=== PATIENT | female | born 1945 | race Caucasian/White ===

== ENCOUNTER 2024-12-18 08:10 | Day surgery (SDC) | payer MEDICARE, SELFPAY ==
[2024-12-17 13:28] VITALS: BMI 20.3
[2024-12-18] VITALS (9 sets, daily range): BP systolic 112–159; BP diastolic 61–92; PULSE 67–83; RESP 15–22; TEMP 36.4; O2SAT 96–99; BMI 22.2
[2024-12-18] MEDS: SODIUM CHLORIDE 0.9% 500 ML 500 ML 20 ML IV (10:55)
[2024-12-18] MEDS: DiphenhydrAMINE INJ 50 MG/ML VIAL 25 MG IV (11:07)
[2024-12-18] MEDS: MIDAZOLAM INJ 1 MG/ML VIAL 2 ML (ASD USE ONLY) 2 MG IV (11:09)
[2024-12-18] MEDS: fentaNYL CIT INJ 50 mCg/ML AMP 2ML (ASD USE ONLY) IV (11:09)
== END 2024-12-18 12:10 | disposition home or self-care (01) ==
PROVIDERS: PCP Internal Medicine; Referring Provider Specialist; Visit Provider Specialist
PROC: 0DBE8ZX Excision of Large Intestine, Via Natural or Artificial Opening Endoscopic, Diagnostic (ICD-10-PCS; CPT 45380; principal; 2024-12-18 12:30)
DX: K63.89 Other specified diseases of intestine (principal); K62.89 Other specified diseases of anus and rectum; K64.9 Unspecified hemorrhoids; K57.30 Diverticulosis of large intestine without perforation or abscess without bleeding
CPT/HCPCS: 45380; A4649; J1200; J2250; J3010; J7040

== ENCOUNTER → 2025-01-04 | Outpatient (CLI) | payer MEDICARE, MEDICAID, SELFPAY ==
[2025-01-04 09:05] LABS: Collection Type, Urine Clean Catch
[2025-01-04 09:28] LABS: Basophils # (Auto) 0.1 Thou/mm3 (0.0-0.2); Basophils % (Auto) 1 % (0-2.5); Eosinophils # (Auto) 0.2 Thou/mm3 (0.0-0.5); Eosinophils % (Auto) 2 % (0-10); Hemoglobin 13.9 g/dL (12.0-16.0); Immature Granulocytes % (Auto) 1 % (0-0); Immature Granulocytes Auto 0.04 Thou/mm3 (0.00-0.00); Lymphocytes # (Auto) 1.3 Thou/mm3 (1.0-4.8); Lymphocytes % (Auto) 18 % (10-50); Mean Corpuscular HGB Conc 33.9 g/dl (31.0-37.0); Mean Corpuscular Volume 95 fL (80-100); Monocytes # (Auto) 0.6 Thou/mm3 (0.0-0.8); Monocytes % (Auto) 8 % (0-12); Neutrophils % (Auto) 70 % (37-80); Nucleated Red Blood Cell % 0 /100 WBC (0); Platelet Count 242 Thou/mm3 (140-440); RDW Standard Deviation 39.8 fL (36.4-46.3); Red Blood Count 4.34 Miln/mm3 (4.00-5.20); White Blood Count 7.1 Thou/mm3 (3.6-11.0)
[2025-01-04 09:42] LABS: Sed Rate (ESR) 12 mm/hr (0-30)
[2025-01-04 09:47] LABS: Alanine Aminotransferase 31 U/L (10-49); Albumin, Serum 4.3 gm/dL (3.4-4.8); Alkaline Phosphatase 78 U/L (46-116); Anion Gap 12 (7-16); Aspartate Amino Transferase 46 U/L (0-34); BUN/Creatinine Ratio 15 Ratio (12-20); Bilirubin,Total 1.6 mg/dL (0.3-1.2); Blood Urea Nitrogen 15 mg/dL (9-23); Calcium 9.5 mg/dL (8.3-10.6); Calcium (Corrected) 9.5 mg/dL (8.5-10.1); Carbon Dioxide 23.4 mMol/L (20.0-31.0); Cardiac Risk Estimate 2.8 RATIO (3.7-5.6); Chloride 102 mMol/L (98-107); Cholesterol 224 mg/dL (132-200); Free T4 (Free Thyroxine) 1.69 ng/dL (0.89-1.76); Globulin 2.1 gm/dL (2.3-3.5); Glucose 109 mg/dL (74-106); HDL Cholesterol 80 mg/dL (40-60); LDL Cholesterol,Calculated 118 mg/dL (0-130); Osmolality,Calculated 275 (275-295); Potassium 4.1 mMol/L (3.4-5.1); Sodium 137 mMol/L (136-145); Thyroid Stimulating Hormone 0.18 uIU/mL (0.55-4.78); Total Protein 6.4 gm/dL (5.7-8.2); Triglycerides 128 mg/dL (30-150); eGFR 57 See Note
[2025-01-04 09:59] LABS: Bilirubin,Urine Negative (Negative); Blood,Urine Negative (Negative); Clarity,Urine Clear (Clear/Hazy); Color,Urine Lt-Yellow (Lt Yel-Yel); Culture Indicated,Urine Not Indicated; Glucose, Urine Negative (Negative); Ketones,Urine Trace (Negative); Leukocyte Esterase,Urine Positive (Negative); Nitrite,Urine Negative (Negative); PH,Urine 6.5 (5.0-7.0); Protein,Urine Negative (Neg - Trace); RBC,Urine 2 /hpf (0-3); Squamous Epithelial Cell,Urine 2 /hpf (0-5); Urobilinogen,Urine Negative mg/dL (0.0-1.0); WBC,Urine 2 /hpf (0-5)
== END | disposition home or self-care (01) ==
LOC: COPL 08:12
PROVIDERS: PCP Internal Medicine; Referring Provider Internal Medicine; Visit Provider Internal Medicine
DX: Z00.00 Encounter for general adult medical examination without abnormal findings (principal)
CPT/HCPCS: 36415; 80053; 80061; 81001; 84439; 84443; 85025; 85652

== ENCOUNTER → 2025-01-07 | Outpatient (CLI) | payer MEDICARE, MEDICAID, SELFPAY ==
[2025-01-07 12:04] LABS: OBS Performed By LAB; OBS QC OK? Yes
[2025-01-07 14:52] LABS: Occult Blood, Stool Negative (Negative); Occult Blood, Stool #2 Negative (Negative); Occult Blood, Stool #3 Negative (Negative)
[2025-01-07 14:53] LABS: OBS Developer Expiration Date 123126; OBS Developer Lot # 1-24 551749
== END | disposition home or self-care (01) ==
LOC: SLDO 11:49
PROVIDERS: PCP Internal Medicine; Referring Provider Internal Medicine; Visit Provider Internal Medicine
DX: Z00.00 Encounter for general adult medical examination without abnormal findings (principal)
CPT/HCPCS: 82270

== ENCOUNTER → 2025-02-01 | Outpatient (CLI) | payer MEDICARE, MEDICAID, SELFPAY ==
--- NOTE | 2025-02-01 13:30 | XR_ITS ---
Examination: Screening digital mammography, bilateral Computer aided detection 3-D breast Tomosynthesis, bilateral Date and time of exam: February 01, 2025 1329 hours Compared to mammograms dating to December 05, 2017 Indication: Screening Technique: Nonmagnified MLO, CC views of the breasts to been obtained, reconstructed from 3-D Tomosynthesis images. R2 computer aided detection program utilized for evaluation of suspicious masses and/or abnormal calcifications. 3-D Tomosynthesis images obtained. Findings: Scattered areas of fibroglandular density. Benign calcifications. No interval suspicious masses Impression: BI-RADS category II: Benign Findings. Recommend 1 year follow-up mammogram.
[2025-02-01 14:38] LABS: Alanine Aminotransferase 21 U/L (10-49); Albumin, Serum 4.5 gm/dL (3.4-4.8); Alkaline Phosphatase 72 U/L (46-116); Aspartate Amino Transferase 36 U/L (0-34); Bilirubin,Direct 0.1 mg/dL (0.0-0.3); Bilirubin,Total 0.5 mg/dL (0.3-1.2); Total Protein 6.9 gm/dL (5.7-8.2)
== END | disposition home or self-care (01) ==
LOC: CDIM 13:28 → COPL 13:40
PROVIDERS: PCP Internal Medicine; Referring Provider Internal Medicine; Visit Provider Radiology Diagnostic Radiology
DX: Z12.31 Encounter for screening mammogram for malignant neoplasm of breast (principal); R92.8 Other abnormal and inconclusive findings on diagnostic imaging of breast; R92.323 Mammographic fibroglandular density, bilateral breasts; I10 Essential (primary) hypertension
CPT/HCPCS: 36415; 77063; 77067; 80076

== ENCOUNTER → 2025-03-23 | Outpatient (CLI) | payer MEDICARE, MEDICAID, SELFPAY ==
[2025-03-23 10:01] LABS: Alanine Aminotransferase 19 U/L (10-49); Albumin, Serum 4.6 gm/dL (3.4-4.8); Alkaline Phosphatase 64 U/L (46-116); Aspartate Amino Transferase 28 U/L (0-34); Bilirubin,Direct 0.2 mg/dL (0.0-0.3); Bilirubin,Total 0.7 mg/dL (0.3-1.2); Total Protein 6.7 gm/dL (5.7-8.2)
== END | disposition home or self-care (01) ==
LOC: COPL 08:15
PROVIDERS: PCP Internal Medicine; Referring Provider Internal Medicine; Visit Provider Internal Medicine
DX: R94.5 Abnormal results of liver function studies (principal)
CPT/HCPCS: 36415; 80076

== ENCOUNTER 2025-05-19 19:25 | Emergency (ER) | payer MEDICARE, MEDICAID, SELFPAY ==
[2025-05-19 20:02] VITALS: BP 143/73; PULSE 92; RESP 16; TEMP 36.6; O2SAT 99
--- NOTE | 2025-05-19 20:05 | XR_ITS ---
Examination: CT cervical spine without contrast 2-D sagittal reconstructions 2-D coronal reconstructions 3-D reconstructions. Exam date and time:May 19, 20252017 hours INDICATION: Ground-level fall today with injury to the neck, neck pain CTDI:vol (mGy) 13.1 DLP: (mGycm) 262 Technique: Multiple 2 mm axial sections of the cervical spine have been obtained. The coronal and sagittal reconstructions have been obtained. 3-D reconstructions have been obtained. Low dose protocols were performed. One or more of the following dose reduction techniques were used; automated exposure control, adjustment of the mA and/or KV according to patient size, use of iterative reconstruction technique. Findings: Axial sections demonstrate intact base of the skull. C1 exhibit satisfactory relationship to the odontoid. No acute cervical vertebral body fracture seen. Alignment posterior spinous processes satisfactory. Cervical fusion C6-C7 Impression: No acute cervical fracture.
--- NOTE | 2025-05-19 20:05 | EKG_ITS ---
[facility] Test Date: 2025-05-19 Pat Name: TOÑO BHATT Department: Room: - Gender: Female Sales Planning Coordinator: : 1945 Requested By: Dusty Duenas Order Number: [id number] Reading MD: Dusty Duenas Measurements Intervals [place] Rate: 101 P: 77 DC: 149 QRS: -8 QRSD: 74 T: 50 QT: 338 QTc: 438 Interpretive Statements SINUS TACHYCARDIA ABNORMAL RHYTHM ECG No previous ECG available for comparison /store/S0/[id number]
--- NOTE | 2025-05-19 20:05 | XR_ITS ---
Examination: CT brain head without contrast. 2-D sagittal coronal reconstructions Date and time of exam:May 19, 20252013 hours INDICATIONS: Patient fell today with injury to the head, head pain CTDI: vol (mGy):48.2 DLP: (mGycm):1010 Technique: Multiple CT axial sections of the brain have been obtained, 5 mm slice thickness. Contrast has not been administered. 2-D sagittal, coronal reconstructions have been obtained Low dose protocols were performed. One or more of the following dose reduction techniques were used; automated exposure control, adjustment of the mA and/or KV according to patient size, use of iterative reconstruction technique. Findings: No significant ventricular enlargement. Intra-axial or extra-axial hemorrhage density is not seen. No mass effect or midline shift Basal cisterns are not remarkable. Fourth ventricle is midline. Cranial vault intact. Impression: Negative for acute hemorrhage, mass effect or midline shift
--- NOTE | 2025-05-19 20:06 | XR_ITS ---
Examination: PA chest single view TECHNIQUE: Upright PA chest single view Date and time: May 19, 2025, 2035 hours, comparison September 10, 2023. INDICATIONS: Patient fell today with image of the chest, chest pain. FINDINGS: Normal heart size No pneumothorax. No pulmonary contusion or hemothorax. Clavicles ribs appear intact IMPRESSION: No pneumothorax pulmonary contusion or hemothorax
--- NOTE | 2025-05-19 20:06 | EDNOTE_ITS ---
ED Head Injury RME/HPI General Chief complaint: Head Injury Stated complaint: LAC to head Time Seen by Provider: 05/19/25 20:04 Arrival date/time: 05/19/25 19:25 79F with history of hypothyroidism and anxiety presents to ED with head lac after fall yesterday. Patient does not remember what happened exactly. Patient is also on HRT. Patient took some extra sleeping pills last and was also drinking. Patient has not had a tetanus shot in the past 5 years, but she doesn't believe in vaccinations. Patient denies SOB and N/V. Unknown LOC. Limitations: no limitations Related Data Home Medications ?Medication ?Instructions ?Recorded ?Confirmed estradiol 0.5 mg tablet 0.5 mg PO QDAY 05/11/1811/29 methocarbamol 750 mg tablet 750 mg PO QDAY 04/04/22 levothyroxine 175 mcg tablet 175 mcg PO QDAY 12/17/24 12/18/24 Allergies Allergy/AdvReac Type Severity Reaction Status Date / Time ciprofloxacin (From Cipro) Allergy Severe OTHER Verified 12/18/24 08:53 semaglutide (From Ozempic) Allergy Severe OTHER Verified 12/18/24 08:53 amoxicillin Allergy Unknown FEELS LIKE Verified 12/18/24 08:53 A HEART ATTACK sulfamethoxazole (From Allergy Verified 12/18/24 08:53 Bactrim) trimethoprim (From Bactrim) Allergy Verified 12/18/24 08:53 Review of Systems Review of Systems Systems Reviewed: All systems reviewed, normal except as documented Constitutional Constitutional: Reports system reviewed and no additional complaints, except as documented, Reports as per HPI, Denies fever(s) and Reports headache(s) (pain) ENT Ears, Nose, Mouth, and Throat: Denies disequilibrium and Reports headache(s) (pain) Cardiovascular Cardiovascular: Reports system reviewed and no additional complaints, except as documented, Denies chest pain and Denies dyspnea Respiratory Respiratory: Reports system reviewed and no additional complaints, except as documented, Denies cough and Denies dyspnea Gastrointestinal Gastrointestinal: Reports system reviewed and no additional complaints, except as documented, Denies abdominal pain, Denies nausea and Denies vomiting Integumentary/Breasts Skin/Breast: Reports as per HPI and Reports skin pain Neurologic Neurologic: Reports system reviewed and no additional complaints, except as documented, Denies confusion, Denies disequilibrium and Reports headache(s) (pain) Psychiatric Psychiatric: Denies confusion Past Medical History Past Medical History NEUROLOGIC: Negative Neurological Disorders or Seizures CARDIAC: Negative Cardiac Disorders or Congestive Heart Failure RESPIRATORY: Negative Chronic Obstructive Pulmonary Disease (COPD) GASTROINTESTINAL: Negative Gastrointestinal Disorders GENITOURINARY: Negative Genitourinary Disorders or Renal Disease MUSCULOSKELETAL: Positive Musculoskeletal Disorders (Left hip brusitis) ENDOCRINE: Positive Hypothyroidism; Negative Diabetes Mellitus Type 1 or Diabetes Mellitus Type 2 OTHER HISTORY: Negative Blood Transfusions or Anesthesia Reactions Surgical History SURGICAL: Positive Hysterectomy Social History SMOKING STATUS: Never smoker ED Exam General Limitations: Present no limitations General appearance: Present alert and in no apparent distress Expanded Head Exam Head exam physical: Present laceration (X cm on top of head) Eye Eye exam: Present normal appearance, PERRL and EOMI ENT ENT exam: Present normal exam, normal oropharynx and mucous membranes moist Neck Neck exam: Present normal inspection, full ROM and trachea midline Chest Chest inspection: Present normal inspection and symmetric chest wall rise Respiratory Respiratory exam: Present normal lung sounds bilaterally Cardiovascular Cardiovascular exam: Present regular rate, normal rhythm and normal heart sounds Abdominal Exam Abdominal exam: Present soft and normal bowel sounds Extremities Exam Extremities exam: Present normal inspection and full ROM Back Exam Back exam: Present normal inspection and full ROM Neurological Exam Neurological exam: Present alert, oriented X3 and CN II-XII intact Psychiatric Psychiatric exam: Present normal affect and normal mood Skin Skin exam: Present warm, dry, intact and normal color Course Quality Measures none Orders Category Date Time Status EKG (ED ONLY) *Do not use* NOW Care 05/19/25 20:05 Completed Stapler to Beside ONCE Care 05/19/25 20:05 Completed Wound Care NOW Care 05/19/25 20:[address] cervical spine wo con Stat Exams 05/19/25 20:[address] head/brain wo con Stat Exams 05/19/25 20:05 Completed EKG (ED Only) Stat Exams 05/19/25 20:05 Draft XR chest 1V portable Stat Exams 05/19/25 20:06 Completed Alcohol, Blood Medical Stat Lab 05/19/25 20:31 Completed CBC Stat Lab 05/19/25 20:31 Completed Comprehensive Metabolic Panel Stat Lab 05/19/25 20:31 Completed D-Dimer Stat Lab 05/19/25 20:31 Completed Drug Screen,Urine Stat Lab 05/19/25 20:38 Completed Magnesium Stat Lab 05/19/25 20:31 Completed Troponin I Stat Lab 05/19/25 20:31 Completed Troponin I Stat Lab 05/19/25 22:39 Completed Urinalysis, C/S if Indicated Stat Lab 05/19/25 20:38 Completed Vital Signs Vital signs: Vital Signs Temperature 98 F 05/19/25 20:02 Pulse Rate 92 05/19/25 20:02 Respiratory Rate 16 05/19/25 20:02 Blood Pressure 143/73 H 05/19/25 20:02 Pulse Oximetry (%) 99 05/19/25 20:02 O2 at 99% on RA and WNLs Head Injury MDM Narrative MDM Narrative:: 79F with history of hypothyroidism and anxiety presents to ED with head lac after fall yesterday. Patient does not remember what happened exactly. Patient is also on HRT. Patient took some extra sleeping pills last and was also drinking. Patient has not had a tetanus shot in the past 5 years, but she doesn't believe in vaccinations. Patient denies SOB and N/V. Unknown LOC. Physical exam reveals X cm lac on top of head. No other gross head trauma. Speech normal. Gait normal. WOB normal. Neck ROM intact. Patient is afebrile, calm, and alert. Wound cleaned/irrigated and closed with 13 jonelle. Given deputy general counsel to have them removed in about [address] unremarkable. No leukocytosis or anemia. CMP unremarkable. UA clean. EKG sinus tach of 101. Trop minimally elevated, but still WNLs. Repeat trop somewhat lower. Patient states she has a heart murmur, which may be responsible for a higher baseline trop. D-dimer normal. Patient data External records reviewed:: [facility] previous records Clinical information provided by:: patient Social determinants that could affect healthcare access:: mental health Patient has the following chronic illnesses:: hypothyroidism and anxiety How is presenting disease/condition affected by chronic disease/condition?: exacerbated by Evaluation data The following diagnostics were reviewed and interpreted by me:: lab results, radiology exam(s) and EKG tracing(s) Lab and/or radiology exams considered but not ordered:: ordered Interpretation Summary: above Medications / Prescriptions Medications or Prescriptions considered but not ordered:: not ordered Medication administrations:: n/a Consultations Consultation(s) initiated? (list below): No Diagnosis Differential diagnosis head injury: concussion without loss of consciousness, epidural hematoma, closed head injury, subarachnoid hematoma, postconcussion syndrome, subdural hematoma, concussion with loss of consciousness and other (laceration and elevated trop) Most likely diagnosis given after review of the tests above:: laceration and elevated trop Admission Indicated Admission indicated?: not indicated Admission Request Was there a request for admission?: No Disposition Plan Disposition Plan: Discharge Discharge Attestation Discharge Attestation: The patient and all family members were given an opportunity to ask questions and understood the discharge instructions. Discharge instructions specifically effects, indications for sooner follow up or return to the emergency department, and the expected course of current diagnosis. Patient condition: Stable Discharge Plan Plan Patient Disposition: HOME (Self Care) Discharge Disposition comment: Stable Prescriptions/Referrals Prescriptions/Med Rec: No Action methocarbamol 750 mg tablet 750 mg PO QDAY estradiol 0.5 mg Tablet 0.5 mg PO QDAY levothyroxine 175 mcg tablet 175 mcg PO QDAY Patient Comments: TAKE 1 TABLET BY MOUTH EVERY DAY IN THE MORNING Referrals: Franci Damon MD [Primary Care Provider] - In 1 week Problem List Clinical Impression: Laceration, Troponin I above reference range Patient/Caregiver Discharge Instructions Education Materials: Troponin, ED Laceration Scalp Sutures or ... Additional Instructions: Please follow-up with PCP within 24-48 hours and return immediately if symptoms worsen. Have jonelle removed in about 10 days. Can see PCP about troponin levels. Your murmur may be responsible for this. Recommend additional follow-up w/ possible referral to cardiology. Print Language: Spanish Stand Alone Forms: Patient Portal Info Letter SURI/GERARDO Supervising Physician SURI/GERARDO Supervising Physician: Dr. Boyd
[2025-05-19 20:39] LABS: Basophils # (Auto) 0.1 Thou/mm3 (0.0-0.2); Basophils % (Auto) 1 % (0-2.5); Eosinophils # (Auto) 0.1 Thou/mm3 (0.0-0.5); Eosinophils % (Auto) 1 % (0-10); Hematocrit 40.7 % (36.0-46.0); Hemoglobin 14.6 g/dL (12.0-16.0); Immature Granulocytes Auto 0.04 Thou/mm3 (0.00-0.00); Lymphocytes # (Auto) 1.8 Thou/mm3 (1.0-4.8); Lymphocytes % (Auto) 19 % (10-50); Mean Corpuscular HGB Conc 35.9 g/dl (31.0-37.0); Mean Corpuscular Hemoglobin 34.5 pg (25.0-35.0); Mean Corpuscular Volume 96 fL (80-100); Monocytes # (Auto) 0.8 Thou/mm3 (0.0-0.8); Monocytes % (Auto) 8 % (0-12); Neutrophils # (Auto) 6.8 Thou/mm3 (1.8-7.7); Neutrophils % (Auto) 71 % (37-80); Nucleated Red Blood Cell # 0.00 Thou/mm3 (0.00-0.00); Nucleated Red Blood Cell % 0 /100 WBC (0); Platelet Count 249 Thou/mm3 (140-440); RDW Standard Deviation 40.6 fL (36.4-46.3); Red Blood Count 4.23 Miln/mm3 (4.00-5.20); White Blood Count 9.5 Thou/mm3 (3.6-11.0)
[2025-05-19 20:56] LABS: D-Dimer < 250 ng/mL (<600)
[2025-05-19 21:02] LABS: Alanine Aminotransferase 19 U/L (10-49); Albumin, Serum 4.8 gm/dL (3.4-4.8); Albumin/Globulin Ratio 2.4 (1.2-2.2); Alkaline Phosphatase 83 U/L (46-116); Anion Gap 8 (7-16); Aspartate Amino Transferase 33 U/L (0-34); BUN/Creatinine Ratio 7 Ratio (12-20); Bilirubin,Total 0.9 mg/dL (0.3-1.2); Blood Urea Nitrogen 6 mg/dL (9-23); Calcium 10.0 mg/dL (8.3-10.6); Calcium (Corrected) 10.0 mg/dL (8.5-10.1); Carbon Dioxide 26.6 mMol/L (20.0-31.0); Chloride 102 mMol/L (98-107); Creatinine (Component) 0.9 mg/dL (0.6-1.3); Globulin 2.0 gm/dL (2.3-3.5); Glucose 111 mg/dL (74-106); Magnesium 2.0 mg/dL (1.6-2.6); Osmolality,Calculated 272 (275-295); Potassium 4.2 mMol/L (3.4-5.1); Sodium 137 mMol/L (136-145); Total Protein 6.8 gm/dL (5.7-8.2); Troponin I 0.037 ng/mL (0.0-0.045); eGFR > 60 See Note
[2025-05-19 21:16] LABS: Alcohol, Blood Medical < 3.0 mg/dL (0-10.0)
[2025-05-19 21:33] LABS: Collection Type, Urine Clean Catch
[2025-05-19 21:41] LABS: Bilirubin,Urine Negative (Negative); Blood,Urine Negative (Negative); Clarity,Urine Clear (Clear/Hazy); Color,Urine Colorless (Lt Yel-Yel); Culture Indicated,Urine Not Indicated; Glucose, Urine Negative (Negative); Ketones,Urine Negative (Negative); Leukocyte Esterase,Urine Negative (Negative); Nitrite,Urine Negative (Negative); PH,Urine 7.5 (5.0-7.0); Protein,Urine Negative (Neg - Trace); RBC,Urine 2 /hpf (0-3); Specific Gravity,Urine 1.005 (1.001-1.035); Squamous Epithelial Cell,Urine 2 /hpf (0-5); Urobilinogen,Urine Negative mg/dL (0.0-1.0); WBC,Urine 1 /hpf (0-5)
[2025-05-19 21:47] LABS: Amphetamine/Methamp Scrn,U Negative (Negative); Barbiturate Screen,Urine Negative (Negative); Benzodiazepines Screen,Urine Negative (Negative); Benzoylecgonine Screen, Ur Negative (Negative); Fentanyl Screen,Urine Negative (Negative); Opiate Screen,Urine Negative (Negative); THC Screen,Urine Negative (Negative)
[2025-05-19 23:03] LABS: Troponin I 0.035 ng/mL (0.0-0.045)
[2025-05-19 23:21] VITALS: BP 132/84; PULSE 78
== END 2025-05-19 23:21 | disposition home or self-care (01) ==
PROVIDERS: Physician Assistant; Emergency Provider Emergency Medicine; PCP Internal Medicine
DX: S01.91XA Laceration without foreign body of unspecified part of head, initial encounter (principal); S19.9XXA Unspecified injury of neck, initial encounter; W19.XXXA Unspecified fall, initial encounter; E03.9 Hypothyroidism, unspecified; F41.9 Anxiety disorder, unspecified; R00.0 Tachycardia, unspecified; Z79.890 Hormone replacement therapy; R79.89 Other specified abnormal findings of blood chemistry
CPT/HCPCS: 12001; 36415; 70450; 71045; 72125; 80053; 80307; 80320; 81001; 83735; 84484; 85025; 85379; 93005; 99283; G0480

== ENCOUNTER 2025-07-13 15:17 | Emergency (ER) | payer MEDICARE, MEDICAID, SELFPAY ==
[2025-07-13 15:19] VITALS: BP 128/67; PULSE 69; RESP 18; TEMP 36.4; O2SAT 99
[2025-07-13 15:20] VITALS: BMI 19.1
[2025-07-13 15:31] VITALS: PULSE 73; O2SAT 99
--- NOTE | 2025-07-13 15:35 | XR_ITS ---
Examination: CT brain head without contrast. 2-D sagittal coronal reconstructions Date and time of exam: July 13, 2025, 1604 hours INDICATIONS: Ground-level fall today with injury to the head, head pain COMPARISON: May 19, 2025 CTDI: vol (mGy): 50 DLP: (mGycm): 1008 Technique: Multiple CT axial sections of the brain have been obtained, 5 mm slice thickness. Contrast has not been administered. 2-D sagittal, coronal reconstructions have been obtained Low dose protocols were performed. One or more of the following dose reduction techniques were used; automated exposure control, adjustment of the mA and/or KV according to patient size, use of iterative reconstruction technique. 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 No acute hemorrhage No mass effect Fourth ventricle is midline Cranial vault intact IMPRESSION: Interval small chronic subdural hygroma peripheral to the left cerebral hemisphere as above No mass effect No acute hemorrhage Recommend short-term follow-up CT brain scan 1 to 2 days to document stability of this chronic appearing subdural hygroma
--- NOTE | 2025-07-13 15:35 | EKG_ITS ---
[facility] Test Date: 2025-07-13 Pat Name: TOÑO BHATT Department: Room: - Gender: Female Logistics/Shipper: : 1945 Requested By: Nate Barajas Order Number: [id number] Reading MD: Nate Barajas Measurements Intervals [place] Rate: 64 P: 40 AL: 159 QRS: -7 QRSD: 83 T: 22 QT: 420 QTc: 436 Interpretive Statements SINUS RHYTHM Compared to ECG 05/19/2025 20:24:05 Sinus tachycardia no longer present /store/S0/[id number]/ecg/[id number]
--- NOTE | 2025-07-13 15:36 | XR_ITS ---
Examination: CT cervical spine without contrast 2-D sagittal reconstructions 2-D coronal reconstructions 3-D reconstructions. Exam date and time: July 13, 2025, 1604 hours INDICATIONS: Ground-level fall today with injury to the neck, neck pain COMPARISON: May 19, 2025 CTDI:vol (mGy) 13.2 DLP: (mGycm) 286 Technique: Multiple 2 mm axial sections of the cervical spine have been obtained. The coronal and sagittal reconstructions have been obtained. 3-D reconstructions have been obtained. Low dose protocols were performed. One or more of the following dose reduction techniques were used; automated exposure control, adjustment of the mA and/or KV according to patient size, use of iterative reconstruction technique. Findings: Axial sections demonstrate intact base of the skull. C1 exhibit satisfactory relationship to the odontoid. No acute cervical vertebral body fracture seen. Alignment posterior spinous processes satisfactory. Impression: No acute cervical fracture.
--- NOTE | 2025-07-13 15:36 | PD.EDADULT ---
ED General RME/HPI General Chief complaint: Dizziness Stated complaint: DIZZINESS Time Seen by Provider: 07/13/25 15:29 Arrival date/time: 07/13/25 15:17 CC: Dizziness HPI patient presents to the ER via EMS who report dizziness also. The patient has stable vital signs. Patient is impatient, stating that she drank wine last night and took a melatonin pill and woke up dizzy this morning. Patient also admits that she fell 3 days ago. And that she has been having problems with recurrent falls. Patient denies chest pain shortness of breath difficulty breathing Related Data Home Medications ?Medication ?Instructions ?Recorded ?Confirmed estradiol 0.5 mg tablet 0.5 mg PO QDAY 05/11/18 12/18/24 methocarbamol 750 mg tablet 750 mg PO QDAY 04/04/22 12/17/24 levothyroxine 175 mcg tablet 175 mcg PO QDAY 12/17/24 12/18/24 Allergies Allergy/AdvReac Type Severity Reaction Status Date / Time ciprofloxacin (From Cipro) Allergy Severe OTHER Verified 12/18/24 08:53 semaglutide (From Ozempic) Allergy Severe OTHER Verified 12/18/24 08:53 amoxicillin Allergy Unknown FEELS LIKE Verified 12/18/24 08:53 A HEART ATTACK sulfamethoxazole (From Allergy Verified 12/18/24 08:53 Bactrim) trimethoprim (From Bactrim) Allergy Verified 12/18/24 08:53 Review of Systems Review of Systems Narrative Review of Systems: GEN: No fever, no chills, no weight loss EYES: No discharge, no visual changes, no pain HEENT: No ear pain, no congestion, no sore throat PULM: No shortness of breath, no cough, no congestion CV: No chest pain, no dyspnea on exertion, no palpitations GI: No nausea, no vomiting, no diarrhea, no pain, no constipation : No frequency, no urgency, no dysuria MUSC/SKEL: No joint pain, no back pain SKIN: No rash PSYCH: No hallucinations, no depression HEME/LYMPH: No easy bleeding or bruising tendencies NEURO: No weakness, no headache, +dizziness ED Exam Narrative Physical exam: [General: Anxious but not in any acute distress Head normocephalic HEENT: Eyes pupils are PERRLA EOMs are intact. Within acceptable limits Neck is supple nontender Chest equal chest rise nontender to palpation Respiratory: Clear to auscultation no wheezes crackles or rubs CV: Rate rhythm is regular no murmurs rubs or clicks Abdomen is soft nontender no masses positive bowel sounds all 4 quadrants Back: No CVA tenderness no spinous process tenderness from cervical spine thoracic and lumbar spine Skin: Intact no petechiae rash induration ulceration or crepitus Extremities: Moving all extremity against resistance cap refill less than 2 seconds neurosensory intact Neuro: Awake alert oriented x3 Glascow coma 15 no focal deficits] Course Course Course Narrative: Patient admits to having recurrent falls, CT of the head shows that the patient has a 8.24 mm subdural dural hygroma peripheral to the left cerebral hemisphere, will need to consult neurosurgery regarding hygroma. Patient's case clinical presentation and CT imaging discussed with Dr. Braga neurosurgeon who felt the dizziness has no relation to the hygroma the patient will be discharged home to follow-up with primary care doctor. She is strongly encouraged to decrease drinking of alcohol in the taking of melatonin in the evenings. Quality Measures none Orders Category Date Time Status EKG (ED ONLY) *Do not use* NOW Care 07/13/25 15:35 Completed Referral - Employment Interviewer Stat Cons 07/13/25 17:[address] cervical spine wo con Stat Exams 07/13/25 15:[address] head/brain wo con Stat Exams 07/13/25 15:35 Completed EKG (ED Only) Stat Exams 07/13/25 15:35 Draft Alcohol, Blood Medical Stat Lab 07/13/25 17:08 Completed B-Type Natriuretic Peptide Stat Lab 07/13/25 17:08 Completed CBC Stat Lab 07/13/25 17:08 Completed Comprehensive Metabolic Panel Stat Lab 07/13/25 17:08 Completed Drug Screen,Urine Stat Lab 07/13/25 16:50 Completed Free T4 (Free Thyroxine) Stat Lab 07/13/25 17:08 Completed LDH (Lactate Dehydrogenase) Stat Lab 07/13/25 17:08 Completed Magnesium Stat Lab 07/13/25 17:08 Completed Partial Thromboplastin Time Stat Lab 07/13/25 17:08 Completed Prothrombin Time with INR Stat Lab 07/13/25 17:08 Completed Thyroid Stimulating Hormone Stat Lab 07/13/25 17:08 Completed Troponin I Stat Lab 07/13/25 17:08 Completed Urinalysis, C/S if Indicated Stat Lab 07/13/25 16:50 Completed Vital Signs Vital signs: Vital Signs Temperature 97.6 F 07/13/25 15:19 Pulse Rate 69 07/13/25 15:19 Respiratory Rate 18 07/13/25 15:19 Blood Pressure 128/67 07/13/25 15:19 Pulse Oximetry (%) 99 07/13/25 15:19 Oxygen Delivery Method Room Air 07/13/25 15:19 Discharge Plan Plan Patient Disposition: HOME (Self Care) Patient condition on transfer: Benefits outweigh risks Prescriptions/Referrals Prescriptions/Med Rec: No Action methocarbamol 750 mg tablet 750 mg PO QDAY estradiol 0.5 mg Tablet 0.5 mg PO QDAY levothyroxine 175 mcg tablet 175 mcg PO QDAY Patient Comments: TAKE 1 TABLET BY MOUTH EVERY DAY IN THE MORNING Referrals: Glen Borrero MD [Primary Care Provider, Family Practice] - In 1 week Problem List Clinical Impression: Dizziness, Fall, Alcohol intoxication Patient/Caregiver Discharge Instructions Education Materials: ED Dizziness, Uncertain Cause, ED Alcohol Intoxication Additional Instructions: Cut back on your alcohol consumption, talk to your primary care doctor about a home health assessment for fall risk. Print Language: Serbian Stand Alone Forms: [employer] Award Info., Work/School Release, Patient Portal Info Letter PA/GERARDO Supervising Physician PA/GERARDO Supervising Physician: Nate Yang ENP [facility] Clinical Information Provided by: patient and EMS [facility] Meds/Rx considered, not ordered None Labs/Rad/Tests considered, not ordered None Chronic Illness/Social Conditions Explain: Hypothyroidism EKG Interpretation EKG #1: EKG Interpretation: EKG performed at 1543 shows a ventricular rate of 64 LA interval 159 QRS of 83 QTc of 430 this is sinus rhythm. Labs Labs: interpreted by fl Lab(s) Interpretation(s): CBC shows no acute leukocytosis anemia thrombocytopenia Coags within acceptable limits CMP shows a chloride of 108 no other electrolyte imbalances renal impairment transaminitis or T. bili elevation Free T4 at 2.1 6 TSH at 1.63 Urine is negative for UTI. U tox is negative Alcohol level is 198
[2025-07-13 17:10] LABS: Collection Type, Urine Clean Catch
[2025-07-13 17:15] LABS: Bilirubin,Urine Negative (Negative); Blood,Urine Negative (Negative); Clarity,Urine Clear (Clear/Hazy); Color,Urine Lt-Yellow (Lt Yel-Yel); Culture Indicated,Urine Not Indicated; Glucose, Urine Negative (Negative); Ketones,Urine Negative (Negative); Leukocyte Esterase,Urine Negative (Negative); Nitrite,Urine Negative (Negative); PH,Urine 6.5 (5.0-7.0); Protein,Urine Negative (Neg - Trace); RBC,Urine 1 /hpf (0-3); Specific Gravity,Urine 1.011 (1.001-1.035); Squamous Epithelial Cell,Urine 2 /hpf (0-5); Urobilinogen,Urine Negative mg/dL (0.0-1.0); WBC,Urine 1 /hpf (0-5)
[2025-07-13 17:20] LABS: Amphetamine/Methamp Scrn,U Negative (Negative); Barbiturate Screen,Urine Negative (Negative); Benzodiazepines Screen,Urine Negative (Negative); Benzoylecgonine Screen, Ur Negative (Negative); Fentanyl Screen,Urine Negative (Negative); Opiate Screen,Urine Negative (Negative); THC Screen,Urine Negative (Negative)
[2025-07-13 17:34] VITALS: BP 120/65; PULSE 83; RESP 15; TEMP 36.7; O2SAT 98
[2025-07-13 17:38] LABS: Basophils # (Auto) 0.1 Thou/mm3 (0.0-0.2); Basophils % (Auto) 1 % (0-2.5); Eosinophils # (Auto) 0.2 Thou/mm3 (0.0-0.5); Eosinophils % (Auto) 2 % (0-10); Hematocrit 42.2 % (36.0-46.0); Hemoglobin 14.5 g/dL (12.0-16.0); Immature Granulocytes Auto 0.03 Thou/mm3 (0.00-0.00); Lymphocytes # (Auto) 1.8 Thou/mm3 (1.0-4.8); Lymphocytes % (Auto) 27 % (10-50); Mean Corpuscular HGB Conc 34.4 g/dl (31.0-37.0); Mean Corpuscular Hemoglobin 33.6 pg (25.0-35.0); Mean Corpuscular Volume 98 fL (80-100); Monocytes # (Auto) 0.4 Thou/mm3 (0.0-0.8); Monocytes % (Auto) 7 % (0-12); Neutrophils # (Auto) 4.2 Thou/mm3 (1.8-7.7); Neutrophils % (Auto) 63 % (37-80); Nucleated Red Blood Cell # 0.00 Thou/mm3 (0.00-0.00); Nucleated Red Blood Cell % 0 /100 WBC (0); Platelet Count 256 Thou/mm3 (140-440); RDW Standard Deviation 40.4 fL (36.4-46.3); Red Blood Count 4.32 Miln/mm3 (4.00-5.20); White Blood Count 6.7 Thou/mm3 (3.6-11.0)
[2025-07-13 17:54] LABS: B-Type Natriuretic Peptide 43 pg/mL (0-100)
[2025-07-13 17:58] LABS: Alanine Aminotransferase 32 U/L (10-49); Albumin, Serum 4.4 gm/dL (3.4-4.8); Albumin/Globulin Ratio 2.2 (1.2-2.2); Alcohol, Blood Medical 198.8 mg/dL (0-10.0); Alkaline Phosphatase 63 U/L (46-116); Anion Gap 12 (7-16); Aspartate Amino Transferase 60 U/L (0-34); BUN/Creatinine Ratio 7 Ratio (12-20); Bilirubin,Total 0.4 mg/dL (0.3-1.2); Blood Urea Nitrogen < 5 mg/dL (9-23); Calcium 9.3 mg/dL (8.3-10.6); Calcium (Corrected) 9.3 mg/dL (8.5-10.1); Carbon Dioxide 25.5 mMol/L (20.0-31.0); Chloride 108 mMol/L (98-107); Creatinine (Component) 0.7 mg/dL (0.6-1.3); Estimated Creatinine Clearance 54.1 mL/min (>60); Free T4 (Free Thyroxine) 2.16 ng/dL (0.89-1.76); Globulin 2.0 gm/dL (2.3-3.5); Glucose 103 mg/dL (74-106); LDH (Lactate Dehydrogenase) 222 U/L (120-246); Magnesium 2.0 mg/dL (1.6-2.6); Osmolality,Calculated 285 (275-295); Potassium 4.1 mMol/L (3.4-5.1); Sodium 145 mMol/L (136-145); Thyroid Stimulating Hormone 1.63 uIU/mL (0.55-4.78); Total Protein 6.4 gm/dL (5.7-8.2); Troponin I 0.034 ng/mL (0.0-0.045); eGFR > 60 See Note
[2025-07-13 18:06] LABS: INR 1.0 (0.9-1.3); Partial Thromboplastin Time 29.0 Seconds (22.0-36.0); Prothrombin Time 10.9 Seconds (9.0-12.2)
--- NOTE | 2025-07-13 18:25 | PC.NURSE ---
INFORMATION FAXED TO [facility]. CALLED AND LEFT MESSAGE WITH [facility] MESSAGE LINE.
--- NOTE | 2025-07-13 19:03 | PC.CM ---
1730 I received referral to transfer patient for neurosurgery for hygroma. I let Carmen transfer nurse know that I was currently busy with several transfers and one being a stat transfer from [place]. Carmen states she will take over transfer.
[2025-07-13 19:11] VITALS: BP 166/49; PULSE 89; RESP 15; TEMP 36.8; O2SAT 98
== END 2025-07-13 19:11 | disposition home or self-care (01) ==
PROVIDERS: Registered Nurse General Practice; Emergency Provider Emergency Medicine; PCP Family Medicine
DX: F10.129 Alcohol abuse with intoxication, unspecified (principal); E03.9 Hypothyroidism, unspecified; R29.6 Repeated falls; Y90.6 Blood alcohol level of 120-199 mg/100 ml
CPT/HCPCS: 36415; 70450; 72125; 80053; 80307; 80320; 81001; 83615; 83735; 83880; 84439; 84443; 84484; 85025; 85610; 85730; 93005; 99284; G0480

== ENCOUNTER 2025-07-22 12:20 | Emergency (ER) | payer MEDICARE, MEDICAID, SELFPAY ==
[2025-07-22 12:21] VITALS: BMI 19.1
[2025-07-22 12:40] VITALS: BP 113/72; PULSE 83; RESP 18; TEMP 36.9; O2SAT 97
--- NOTE | 2025-07-22 12:51 | XR_ITS ---
Examination: CT brain head without contrast. 2-D sagittal coronal reconstructions Date and time of exam: July 22, 2025, 1333 hours INDICATIONS: Head trauma 2 weeks ago with persistent head pain COMPARISON: 01/11/2025 CTDI: vol (mGy): 48.8 DLP: (mGycm): 1040 Technique: Multiple CT axial sections of the brain have been obtained, 5 mm slice thickness. Contrast has not been administered. 2-D sagittal, coronal reconstructions have been obtained Low dose protocols were performed. One or more of the following dose reduction techniques were used; automated exposure control, adjustment of the mA and/or KV according to patient size, use of iterative reconstruction technique. Findings: No significant ventricular enlargement. Intra-axial or extra-axial hemorrhage density is not seen. No mass effect or midline shift Basal cisterns are not remarkable. Fourth ventricle is midline. Cranial vault intact. Impression: Negative for acute hemorrhage, mass effect or midline shift Advise clinical correlation and follow-up accordingly
--- NOTE | 2025-07-22 14:33 | PD.EDHA ---
ED Headache RME/HPI General Chief Complaint: Headache Stated Complaint: yellow discharge from eyes last night Time Seen by Provider: 07/22/25 12:51 Arrival date/time: 07/22/25 12:20 80-year-old female presents for complaints for bilateral eye discharge and crusting patient also reports that she had an injury 11 days ago patient had a CT scan at the time was told to have repeat CT scan 2 days patient reports she was unable to see her doctor so she came here instead. Currently patient reports no headache dizziness or weakness Limitations: no limitations Related Data Home Medications ?Medication ?Instructions ?Recorded ?Confirmed estradiol 0.5 mg tablet 0.5 mg PO QDAY 05/11/18 12/18/24 methocarbamol 750 mg tablet 750 mg PO QDAY 04/04/22 12/17/24 levothyroxine 175 mcg tablet 175 mcg PO QDAY 12/17/24 12/18/24 Previous Rx's ?Medication ?Instructions ?Recorded tobramycin 0.3 % eye drops 2 drp ophthalmic (eye) Q4H 5 days 07/22/25 #5 mL Allergies Allergy/AdvReac Type Severity Reaction Status Date / Time ciprofloxacin (From Cipro) Allergy Severe OTHER Verified 12/18/24 08:53 semaglutide (From Ozempic) Allergy Severe OTHER Verified 12/18/24 08:53 amoxicillin Allergy Unknown FEELS LIKE Verified 12/18/24 08:53 A HEART ATTACK sulfamethoxazole (From Allergy Verified 12/18/24 08:53 Bactrim) trimethoprim (From Bactrim) Allergy Verified 12/18/24 08:53 Review of Systems Review of Systems Systems Reviewed: All systems reviewed, normal except as documented Constitutional Constitutional: Reports system reviewed and no additional complaints, except as documented, Denies fever(s) and Reports headache(s) Eyes Eyes: Reports system reviewed and no additional complaints, except as documented and Denies blurry vision ENT Ears, Nose, Mouth, and Throat: Reports system reviewed and no additional complaints, except as documented, Reports headache(s), Denies nasal congestion and Denies nasal discharge Cardiovascular Cardiovascular: Reports system reviewed and no additional complaints, except as documented, Denies chest pain and Denies dyspnea Respiratory Respiratory: Reports system reviewed and no additional complaints, except as documented, Denies chest congestion, Denies cough and Denies dyspnea Gastrointestinal Gastrointestinal: Reports system reviewed and no additional complaints, except as documented and Denies abdominal pain Integumentary/Breasts Skin/Breast: Reports system reviewed and no additional complaints, except as documented and Denies rash Neurologic Neurologic: Reports system reviewed and no additional complaints, except as documented, Reports as per HPI and Reports headache(s) Past Medical History Past Medical History NEUROLOGIC: Negative Neurological Disorders or Seizures CARDIAC: Negative Cardiac Disorders or Congestive Heart Failure RESPIRATORY: Negative Chronic Obstructive Pulmonary Disease (COPD) GASTROINTESTINAL: Negative Gastrointestinal Disorders GENITOURINARY: Negative Genitourinary Disorders or Renal Disease MUSCULOSKELETAL: Positive Musculoskeletal Disorders and Arthritis ENDOCRINE: Positive Endocrine Disorders (Junior's disease) and Hypothyroidism; Negative Diabetes Mellitus Type 1 or Diabetes Mellitus Type 2 PSYCHO/SOCIAL: Positive Anxiety OTHER HISTORY: Negative Blood Transfusions or Anesthesia Reactions Surgical History SURGICAL: Positive Hysterectomy Social History SMOKING STATUS: Current some day smoker ED Exam General Limitations: Present no limitations General appearance: Present alert and in no apparent distress Head Head exam: Present atraumatic Eye Eye exam: Present PERRL, EOMI and conjunctival injection ENT ENT exam: Present normal exam, normal oropharynx and mucous membranes moist Neck Neck exam: Present normal inspection, full ROM and trachea midline Chest Chest inspection: Present normal inspection and symmetric chest wall rise Respiratory Respiratory exam: Present normal lung sounds bilaterally Cardiovascular Cardiovascular exam: Present regular rate, normal rhythm and normal heart sounds Abdominal Exam Abdominal exam: Present soft and normal bowel sounds Extremities Exam Extremities exam: Present normal inspection and full ROM Back Exam Back exam: Present normal inspection and full ROM Neurological Exam Neurological exam: Present alert, oriented X3 and CN II-XII intact Psychiatric Psychiatric exam: Present normal affect and normal mood Skin Skin exam: Present warm, dry, intact and normal color Course Quality Measures none Orders Category Date Time Status CT head/brain wo con Stat Exams 07/22/25 12:51 Completed Vital Signs Vital signs: Vital Signs Temperature 98.5 F 07/22/25 12:40 Pulse Rate 83 07/22/25 12:40 Respiratory Rate 18 07/22/25 12:40 Blood Pressure 113/72 07/22/25 12:40 Pulse Oximetry (%) 97 07/22/25 12:40 Oxygen Delivery Method Room Air 07/22/25 12:40 O2 saturation 97% room air with normal limits Headache MDM Narrative MDM Narrative:: 80-year-old female presents for complaints for bilateral eye discharge and crusting patient also reports that she had an injury 11 days ago patient had a CT scan at the time was told to have repeat CT scan 2 days patient reports she was unable to see her doctor so she came here instead. Currently patient reports no headache dizziness or weakness CT scan head obtained no acute emergent findings noted Patient symptomatology symptoms are consistent conjunctivitis Patient wishes symptomatically should symptoms persist or worsen instructed return for evaluation Patient data External records reviewed:: [facility] previous records Clinical information provided by:: patient Social determinants that could affect healthcare access:: none Patient has the following chronic illnesses:: See history How is presenting disease/condition affected by chronic disease/condition?: uneffected by Evaluation data The following diagnostics were reviewed and interpreted by me:: radiology exam(s) Lab and/or radiology exams considered but not ordered:: Radiology obtained Interpretation Summary: Reviewed by me Medications / Prescriptions Medications or Prescriptions considered but not ordered:: Given Medication administrations:: Given Consultations Consultation(s) initiated? (list below): No Diagnosis Differential diagnosis headache: migraine, tension headache and subarachnoid hemorrhage Most likely diagnosis given after review of the tests above:: Headache Admission Indicated Admission indicated?: not indicated Admission Request Was there a request for admission?: No Disposition Plan Disposition Plan: Discharge Discharge Attestation Discharge Attestation: The patient and all family members were given an opportunity to ask questions and understood the discharge instructions. Discharge instructions specifically effects, indications for sooner follow up or return to the emergency department, and the expected course of current diagnosis. Patient condition: Stable Discharge Plan Plan Patient Disposition: HOME (Self Care) Discharge Disposition comment: Stable Prescriptions/Referrals Prescriptions/Med Rec: New tobramycin 0.3 % drops 2 drp ophthalmic (eye) Q4H 5 Days Qty: 5 0RF No Action methocarbamol 750 mg tablet 750 mg PO QDAY estradiol 0.5 mg Tablet 0.5 mg PO QDAY levothyroxine 175 mcg tablet 175 mcg PO QDAY Patient Comments: TAKE 1 TABLET BY MOUTH EVERY DAY IN THE MORNING Referrals: Glen Borrero MD [Primary Care Provider, Family Practice] - 07/23/25 Problem List Clinical Impression: Conjunctivitis Patient/Caregiver Discharge Instructions Education Materials: Conjunctivitis Caused by Infection Additional Instructions: Please follow up with your primary care doctor in the next 24-48hrs for any worsening symptoms return here immediately Print Language: Azeri Stand Alone Forms: Esther Award Info., Patient Portal Info Letter PA/MANAGER USER EXPERIENCE Supervising Physician PA/MANAGER USER EXPERIENCE Supervising Physician: Dr. edwards
== END 2025-07-22 15:17 | disposition home or self-care (01) ==
PROVIDERS: Emergency Provider Nurse Practitioner Primary Care; PCP Family Medicine
DX: H10.9 Unspecified conjunctivitis (principal); Z90.710 Acquired absence of both cervix and uterus
CPT/HCPCS: 70450; 99282